=== PATIENT | male | born 1955 | race African-American/Black ===

== ENCOUNTER 2024-04-10 14:41 | Inpatient (IN) | payer OTHER ==
[2024-04-10 15:22] VITALS: BMI 26.7
[2024-04-10] MEDS ORDERED: IBUPROFEN 400 MG TABLET (FP) PO PRN (15:34)
[2024-04-10] MEDS ORDERED: NICOTINE POLACRILEX 2 MG LOZENGE BC PRN (15:34)
[2024-04-10] MEDS ORDERED: BENZONATATE 200 MG CAPSULE PO PRN (15:34)
[2024-04-10] MEDS ORDERED: LOPERAMIDE HCL 2 MG CAPSULE PO PRN (15:34)
[2024-04-10] MEDS ORDERED: NALOXONE HCL 0.4 MG/ML VIAL IM PRN (15:34)
[2024-04-10] MEDS ORDERED: ACETAMINOPHEN 325 MG TABLET (FP) PO PRN (15:34)
[2024-04-10] MEDS ORDERED: MAGNESIUM HYDROX 2400MG/30ML ORAL SUSPENSION 30 ML CUP PO PRN (15:34)
[2024-04-10] MEDS ORDERED: BENZOCAINE/MENTHOL (CHLORASEPTIC ) LOZENGE MM PRN (15:34)
[2024-04-10] MEDS ORDERED: NALOXONE (NARCAN) HCL 4 MG/0.1 ML SPRAY NS PRN (15:34)
[2024-04-10] MEDS ORDERED: guaiFENesin 600 MG TABLET.ER (FP) PO PRN (15:34)
[2024-04-10] MEDS ORDERED: NICOTINE POLACRILEX 2 MG GUM BUC PRN (15:34)
[2024-04-10] MEDS ORDERED: POLYETHYLENE GLYCOL (HEALTHYLAX) 3350 17 GM PACKET PO PRN (15:34)
[2024-04-10] MEDS ORDERED: metFORMIN HCL 500 MG TABLET (FP) PO SCH (16:30)
[2024-04-10] MEDS: metFORMIN HCL 500 MG TABLET (FP) PO SCH (18:10)
[2024-04-10] MEDS: MELATONIN 5 MG TABLETS PO SCH (22:17)
[2024-04-10] MEDS: ATORVASTATIN CA 20 MG TABLET (FP) PO SCH (22:17)
[2024-04-10] MEDS: THIAMINE 100 MG TABLET PO SCH (22:17)
[2024-04-11] MEDS ORDERED: EMPAGLIFLOZIN (JARDIANCE) 10 MG TABLET PO SCH (07:00)
[2024-04-11] MEDS ORDERED: diazePAM 5 MG TABLET PO PRN (08:51)
[2024-04-11] MEDS: EMPAGLIFLOZIN (JARDIANCE) 10 MG TABLET PO SCH (09:06)
[2024-04-11] MEDS: cloNIDine HCL 0.1 MG TABLET PO SCH (09:19)
[2024-04-11] MEDS: PRENATAL VITAMINS W/ FOLIC ACID TABLET (FP) PO SCH (09:19)
[2024-04-11] MEDS: BUPRENORPHINE/NALOXONE 0.5 MG/0.125 MG FILM SL ONE ×2 (09:20→22:31)
[2024-04-11] MEDS: methaDONE HCL 10 MG TABLET (FOR DETOX USE ONLY) PO ONE ×2 (09:20→10:51)
[2024-04-11] MEDS: diazePAM 5 MG TABLET PO SCH (09:21)
[2024-04-11] MEDS: BISMUTH SUBSALICYLATE 524 MG/30 ML PO PRN (09:24)
[2024-04-11] MEDS: NIFEdipine E.R. 30 MG TABLET PO SCH (09:26)
[2024-04-11] MEDS: ONDANSETRON *ODT* 4 MG TABLET SL PRN (10:51)
[2024-04-11] MEDS: GABAPENTIN 100 MG CAPSULE PO SCH (10:51)
[2024-04-11] MEDS: DICYCLOMINE HCL 10 MG CAPSULE PO PRN (10:57)
[2024-04-11 12:18] LABS: HEMATOCRIT 50.6 % (35.4-49); HEMOGLOBIN 17.1 GM/dL (11.7-16.9); MCH 33.5 pg (25.7-33.7); MCHC 33.9 g/dl (32.0-35.9); MEAN CELL VOLUME 98.9 fl (80-96); MEAN PLT VOLUME 8.8 fl (7.5-11.1); PLATELET COUNT 154 10^3/uL (134-434); RBC 5.12 M/mm3 (4.00-5.60); RDW 12.9 % (11.9-15.9); WHITE BLOOD COUNT 6.4 K/mm3 (4.0-10.0)
[2024-04-11 12:31] LABS: CHLORIDE 106 mmol/L (98-107); POTASSIUM 3.8 mmol/L (3.5-5.1); SODIUM 141 mmol/L (136-145)
[2024-04-11 12:34] LABS: CALCIUM 10.1 mg/dL (8.5-10.1)
[2024-04-11 12:35] LABS: ALBUMIN 4.2 g/dl (3.4-5.0); ANION GAP 12 mmol/L (4-13); BLOOD UREA NITROGEN 9.4 mg/dL (7-18); CO2 22 mmol/L (21-32); GLUCOSE,RANDOM 181 mg/dL (74-106)
[2024-04-11 12:37] LABS: SGPT/ALT 41 U/L (13-61)
[2024-04-11 12:38] LABS: CREATININE 0.8 mg/dL (0.55-1.3); SGOT/AST 25 U/L (15-37)
[2024-04-11 12:39] LABS: ALK PHOS 86 U/L (45-117); BILIRUBIN,TOTAL 2.1 mg/dL (0.2-1)
[2024-04-11] MEDS: hydrOXYzine PAMOATE 25 MG CAPSULE (FP) PO PRN (13:32)
[2024-04-11] MEDS ORDERED: GABAPENTIN 100 MG CAPSULE PO SCH (14:00)
[2024-04-12] MEDS: BUPRENORPHINE/NALOXONE 0.5 MG/0.125 MG FILM SL SCH (10:18)
[2024-04-12] MEDS: traZODone HCL 50 MG TABLET (FP) PO SCH (22:16)
[2024-04-13] MEDS: IBUPROFEN 600 MG TABLET (FP) PO PRN (06:13)
[2024-04-13] MEDS: BUPRENORPHINE/NALOXONE 2 MG/0.5 MG FILM PACKET SL SCH (09:45)
[2024-04-13] MEDS: methaDONE HCL 10 MG TABLET (FOR DETOX USE ONLY) PO ONE (09:45)
[2024-04-13] MEDS: diazePAM 5 MG TABLET PO SCH (09:46)
[2024-04-14] MEDS ORDERED: diazePAM 5 MG TABLET PO PRN (08:53)
[2024-04-14] MEDS: BUPRENORPHINE/NALOXONE 4 MG/1 MG FILM PACKET SL SCH (09:39)
[2024-04-15] MEDS: P-EPHED 60MG/TRIPROLIDI 2.5MG TABLET PO PRN (06:45)
[2024-04-15] MEDS: BUPRENORPHINE/NALOXONE 8 MG/2 MG FILM PACKET SL SCH (09:31)
[2024-04-15] MEDS: methaDONE HCL 10 MG TABLET (FOR DETOX USE ONLY) PO ONE (09:32)
[2024-04-15] MEDS: MAG HYDROX/AL HYDROX/SIMETH 30 ML UNIT-DOSE CUP PO PRN (13:09)
[2024-04-16 06:21] VITALS: BP 121/80; PULSE 81; RESP 16; TEMP 98.1
[2024-04-16] MEDS: BUPRENORPHINE/NALOXONE 8 MG/2 MG FILM PACKET SL SCH (10:04)
== END 2024-04-16 11:54 | disposition home or self-care (01) | DRG 897 ==
LOC: YASAS 14:41 → Y3N 16:35
PROVIDERS: ADMIT Allergy & Immunology; ATTEND Family Medicine Addiction Medicine
PROC: HZ2ZZZZ Detoxification Services for Substance Abuse Treatment (ICD-10-PCS; principal; 2024-04-10)
DX: F11.23 Opioid dependence with withdrawal (principal); F14.20 Cocaine dependence, uncomplicated; F17.210 Nicotine dependence, cigarettes, uncomplicated; I10 Essential (primary) hypertension; E78.5 Hyperlipidemia, unspecified; E11.9 Type 2 diabetes mellitus without complications; Z79.84 Long term (current) use of oral hypoglycemic drugs
CPT/HCPCS: 36415; 80053; 80305; 80307; 82962; 85027; 86780; 86803; 87522; 93005; 93010; Q0162